=== PATIENT | female | born 1990 | race Two or more races ===

== ENCOUNTER 2016-08-17 22:43 | Emergency (ER) | payer SELFPAY ==
[~2016-08-17] VITALS: Ht 167.6 cm; Wt 62.7 kg
[2016-08-17 22:47] VITALS: BP 137/86
== END 2016-08-17 23:43 | disposition home or self-care (01) ==
LOC: ED 23:30
DX: R21 Rash and other nonspecific skin eruption (principal); B86 Scabies; F17.200 Nicotine dependence, unspecified, uncomplicated
CPT/HCPCS: 99283